=== PATIENT | male | born 1955 | race African-American/Black ===

== ENCOUNTER 2018-09-09 18:31 | Inpatient (IN) ==
[2018-09-09] MEDS ORDERED: ONDANSETRON 4 MG/2 ML VIAL IV PRN (21:31)
[2018-09-09] MEDS ORDERED: MORPHINE 4 MG/1 ML VIAL IV PRN (21:31)
[2018-09-09] MEDS ORDERED: ACETAMINOPHEN 325 MG TABLET PO PRN (21:31)
[2018-09-09] MEDS ORDERED: DOCUSATE SODIUM 100 MG CAPSULE PO PRN (21:31)
[2018-09-09] MEDS ORDERED: ZALEPLON 5 MG CAPSULE PO PRN (21:31)
[2018-09-09] MEDS ORDERED: NICOTINE 21 MG/24 HR PATCH TRANSDERM PRN (21:31)
[2018-09-09] MEDS ORDERED: TICAGRELOR 90 MG TABLET PO ONE (21:33)
[2018-09-09 21:37] LABS: Basophils % 0.3 % (0.0-0.8); Eosinophils % 0.5 % (0.00-10.9); Hematocrit 43.2 VOL% (42.0-52.0); Hemoglobin 13.6 GM/DL (14.0-18.0); Immature Granulocytes % 0.3 %; Immature Granulocytes Absolute 0.02 #; Lymphocytes # 2.6 10*3/uL (1.4-4.0); Lymphocytes % 44.3 % (21.2-54.2); Mean Corpuscular HGB Conc 31.5 GM/DL (32-36); Mean Corpuscular Volume 85.5 FL (87-102); Mean Platelet Volume 9.1 FL (9.6-12.0); Monocytes % 8.7 % (1.7-12.7); Neutrophils % 45.9 % (38.7-73.9); Platelet Count 203 T/CUMM (130-400); Red Blood Count 5.05 MC/CUMM (3.8-5.5); Red Cell Distribution Width 14.1 % (9.3-17.3); White Blood Count 5.9 T/CUMM (4-12)
[2018-09-09 21:48] LABS: PT Patient Result 10.7 SECS; Partial Thromboplastin Time 33.4 SECS (0-40)
[2018-09-09 21:50] LABS: Calcium 9.4 MG/DL (8.5-10.1); Osmolality,Calculated 278.3 MOS/KG (273-304)
[2018-09-09] MEDS ORDERED: ENOXAPARIN 40 MG/0.4 ML SYRINGE SUBCUT SCH (22:00)
[2018-09-09] MEDS ORDERED: MAGNESIUM SULF RIDER 2 GM in PREMIX 1 EACH IV PRN (22:13)
[2018-09-09] MEDS ORDERED: POTASSIUM CHLORIDE RIDER 10 MEQ in PREMIX 1 EACH IV PRN (22:13)
[2018-09-09 22:14] LABS: Thyroid Stimulating Hormone 2.25 uIU/ml (0.358-3.74)
[2018-09-09] MEDS ORDERED: HEPARIN/NACL 0.9% 2 UNITS/ML 1,000 ML IV ONE (22:29)
[2018-09-09] MEDS ORDERED: LIDOCAINE 1% 20 ML VIAL ONE (22:29)
[2018-09-09] MEDS ORDERED: HYDROmorphone 2 MG/1 ML VIAL ONE (22:30)
[2018-09-09] MEDS ORDERED: MIDAZOLAM 2 MG/2 ML VIAL ONE (22:30)
[2018-09-09] MEDS: SODIUM CHLORIDE 0.9% 1,000 ML IV SCH (22:30)
[2018-09-09] MEDS ORDERED: diphenhydrAMINE 50 MG/1 ML VIAL ONE (22:50)
[2018-09-09] MEDS ORDERED: BIVALIRUDIN 250 MG VIAL IV ONE (23:25)
[2018-09-09] MEDS ORDERED: NITROGLYCERIN SL 0.4 MG TABLET SL PRN (23:29)
[2018-09-10] MEDS: SODIUM CHLORIDE 0.9% 1,000 ML IV SCH (06:18)
[2018-09-10] MEDS ORDERED: ENOXAPARIN 80 MG/0.8 ML SYRINGE SUBCUT SCH (07:00)
[2018-09-10 07:17] LABS: Basophils % 0.2 % (0.0-0.8); Eosinophils % 0.5 % (0.00-10.9); Hematocrit 43.8 VOL% (42.0-52.0); Hemoglobin 14.2 GM/DL (14.0-18.0); Immature Granulocytes % 0.2 %; Immature Granulocytes Absolute 0.01 #; Lymphocytes % 35.9 % (21.2-54.2); Mean Corpuscular HGB Conc 32.4 GM/DL (32-36); Mean Corpuscular Volume 85.9 FL (87-102); Mean Platelet Volume 9.3 FL (9.6-12.0); Monocytes % 9.7 % (1.7-12.7); Neutrophils % 53.5 % (38.7-73.9); Platelet Count 201 T/CUMM (130-400); Red Cell Distribution Width 14.3 % (9.3-17.3); White Blood Count 5.5 T/CUMM (4-12)
[2018-09-10 08:09] LABS: Calcium 8.5 MG/DL (8.5-10.1); Risk Ratio 4.36; VLDL CHOLESTEROL 27.6 MG/DL
[2018-09-10] MEDS: ASPIRIN 325 MG TABLET PO SCH (10:03)
[2018-09-10] MEDS: METOPROLOL TARTRATE 50 MG TABLET PO SCH ×2 (10:03→20:51)
[2018-09-10] MEDS: PANTOPRAZOLE 40 MG TABLET PO SCH (10:04)
[2018-09-10] MEDS: ATORVASTATIN 40 MG TABLET PO SCH (10:05)
[2018-09-10] MEDS: QUEtiapine 100 MG TABLET PO SCH (20:51)
[2018-09-11] MEDS: METOPROLOL TARTRATE 50 MG TABLET PO SCH ×2 (08:02→21:18)
[2018-09-11] MEDS: ASPIRIN 325 MG TABLET PO SCH (08:16)
[2018-09-11] MEDS: ATORVASTATIN 40 MG TABLET PO SCH (08:16)
[2018-09-11] MEDS: PANTOPRAZOLE 40 MG TABLET PO SCH (08:16)
[2018-09-11] MEDS ORDERED: diphenhydrAMINE CAP 25 MG CAPSULE PO PRN (16:55)
[2018-09-11] MEDS ORDERED: MAGNESIUM HYDROXIDE SUSP 30 ML UDCUP PO PRN (16:56)
[2018-09-11] MEDS: QUEtiapine 100 MG TABLET PO SCH (21:18)
[2018-09-12 04:51] LABS: Basophils % 0.4 % (0.0-0.8); Eosinophils % 0.6 % (0.00-10.9); Hematocrit 38.4 VOL% (42.0-52.0); Hemoglobin 12.6 GM/DL (14.0-18.0); Immature Granulocytes % 0.2 %; Immature Granulocytes Absolute 0.01 #; Lymphocytes # 1.8 10*3/uL (1.4-4.0); Lymphocytes % 39.7 % (21.2-54.2); Mean Corpuscular HGB Conc 32.8 GM/DL (32-36); Mean Platelet Volume 9.2 FL (9.6-12.0); Monocytes % 11.6 % (1.7-12.7); Neutrophils % 47.5 % (38.7-73.9); Platelet Count 191 T/CUMM (130-400); Red Blood Count 4.57 MC/CUMM (3.8-5.5); Red Cell Distribution Width 13.9 % (9.3-17.3); White Blood Count 4.6 T/CUMM (4-12)
[2018-09-12 05:07] LABS: Calcium 9.2 MG/DL (8.5-10.1)
[2018-09-12] MEDS: PANTOPRAZOLE 40 MG TABLET PO SCH (09:20)
[2018-09-12] MEDS: ASPIRIN 325 MG TABLET PO SCH (09:20)
[2018-09-12] MEDS: ATORVASTATIN 40 MG TABLET PO SCH (09:20)
[2018-09-12] MEDS: METOPROLOL TARTRATE 50 MG TABLET PO SCH ×2 (09:20→20:23)
[2018-09-12] MEDS: QUEtiapine 100 MG TABLET PO SCH (21:08)
[2018-09-13 05:12] LABS: Basophils % 0.4 % (0.0-0.8); Eosinophils % 0.9 % (0.00-10.9); Hematocrit 40.4 VOL% (42.0-52.0); Immature Granulocytes % 0.2 %; Immature Granulocytes Absolute 0.01 #; Lymphocytes # 2.1 10*3/uL (1.4-4.0); Lymphocytes % 44.5 % (21.2-54.2); Mean Corpuscular HGB Conc 32.2 GM/DL (32-36); Mean Corpuscular Volume 84.3 FL (87-102); Mean Platelet Volume 9.3 FL (9.6-12.0); Monocytes % 10.9 % (1.7-12.7); Neutrophils % 43.1 % (38.7-73.9); Platelet Count 205 T/CUMM (130-400); Red Blood Count 4.79 MC/CUMM (3.8-5.5); Red Cell Distribution Width 13.8 % (9.3-17.3); White Blood Count 4.7 T/CUMM (4-12)
[2018-09-13 05:41] LABS: Calcium 9.5 MG/DL (8.5-10.1)
[2018-09-13] MEDS: ASPIRIN 325 MG TABLET PO SCH (09:20)
[2018-09-13] MEDS: PANTOPRAZOLE 40 MG TABLET PO SCH (09:21)
[2018-09-13] MEDS: METOPROLOL TARTRATE 50 MG TABLET PO SCH ×2 (09:21→22:14)
[2018-09-13] MEDS: ATORVASTATIN 40 MG TABLET PO SCH (09:21)
[2018-09-13] MEDS: CHLORHEXIDINE 4% SOLN 118 ML BOTTLE TOP SCH ×2 (16:06→22:14)
[2018-09-13] MEDS: CHLORHEXIDINE 0.12% ORAL RINSE 60 ML BOTTLE SWISH/SPIT SCH (22:14)
[2018-09-13] MEDS: QUEtiapine 100 MG TABLET PO SCH (22:14)
[2018-09-14] MEDS ORDERED: PAPAVERINE 60 MG/2 ML VIAL ONE (04:24)
[2018-09-14] MEDS ORDERED: TISSUE ADHESIVE 1 EACH APPLICATOR TOP ONE (04:24)
[2018-09-14] MEDS ORDERED: VANCOMYCIN 1,000 MG VIAL ONE (04:24)
[2018-09-14] MEDS: CHLORHEXIDINE 0.12% ORAL RINSE 60 ML BOTTLE SWISH/SPIT SCH ×3 (04:51→20:16)
[2018-09-14] MEDS: CHLORHEXIDINE 4% SOLN 118 ML BOTTLE TOP SCH ×2 (04:51→10:37)
[2018-09-14] MEDS ORDERED: MIDAZOLAM 10 MG/2 ML VIAL ONE (05:52)
[2018-09-14] MEDS ORDERED: SUFentanil 250 MCG/5 ML AMP ONE (05:52)
[2018-09-14] MEDS ORDERED: CEFUROXIME INJ 1,500 MG in SYRINGE 1 EACH IV ONE (06:00)
[2018-09-14] MEDS: SODIUM CHLORIDE 0.9% 1,000 ML IV SCH ×2 (06:03→10:38)
[2018-09-14] MEDS ORDERED: FAMOTIDINE 20 MG TABLET PO ONE (06:30)
[2018-09-14] MEDS ORDERED: DIAZEPAM 5 MG TABLET PO ONE (06:30)
[2018-09-14 07:53] LABS: ABG Base Excess 2.1 MMOL/L (-2.5-2.5); ABG HCO3 26.3 MMOL/L (20-26); ABG PCO2 37.3 MM HG (35-48); ABG TCO2 22.6 MMOL/L (23-27); Glucose Heart Surgery 108 MG/DL (74-106); Hematocrit Heart Surgery 39.5 PERCENT (42-52); Hemoglobin Heart Surgery 12.9 G/DL (14.0-18.0); Ionized Calcium Arterial 1.17 MMOL/L (1.21-1.46); PCO2 Patient Temp Arterial 37.3 MMHG; Patient Temperature 37 CELCIUS; Potassium Heart/CVR 3.5 MMOL/L (3.5-5.1); Sodium Heart/CVR 140 MMOL/L (135-145)
[2018-09-14] MEDS ORDERED: CEFUROXIME 1,500 MG VIAL ONE (07:58)
[2018-09-14 08:37] LABS: Apearance,Urine CLEAR (Clear); Bilirubin,Urine Negative (Negative); Blood, Urine Negative (Negative); Glucose,Urine (UA) Negative (Negative); Ketones,Urine Negative (Negative); Mucus,Urine Occasional /LPF (Occasional); Nitrite,Urine Negative (Negative); Protein,Urine Negative; RBC,Urine 2 /HPF (0-4); Sperm,Urine Occasional /HPF (Negative); Squamous Epithelial Cell,Urine Occasional /HPF (0-10); Urine Color Yellow (Yellow); Urine Specific Gravity 1.014 (1.001-1.035); Urine Urobilinogen < 2.0 EU/DL (0.2-1.0); WBC,Urine <1 /HPF (0-6)
[2018-09-14 09:39] LABS: Hematocrit Heart Surgery 28.2 PERCENT (42-52); Hemoglobin Heart Surgery 9.1 G/DL (14.0-18.0); PCO2 Patient Temp Venous 32.1 MM HG; PH Patient Temp Venous 7.507; PO2 Patient Temp Venous 35.1 MM HG; Potassium Heart/CVR 4.4 MMOL/L (3.5-5.1); VBG Base Excess 2.8 MEQ/L (0-4); VBG HCO3 26.6 MEQ/L (24-28); VBG Oxygen Saturation 80.3 %; VBG PCO2 37.1 MMHG (41-51); VBG PH 7.462; VBG PO2 43.3 MMHG (17-40)
[2018-09-14 10:06] LABS: PCO2 Patient Temp Venous 26.9 MM HG; PH Patient Temp Venous 7.573; PO2 Patient Temp Venous 38.3 MM HG; Potassium Heart/CVR 3.7 MMOL/L (3.5-5.1); VBG Base Excess 2.4 MEQ/L (0-4); VBG HCO3 24.8 MEQ/L (24-28); VBG PCO2 30.7 MMHG (41-51); VBG PH 7.526; VBG PO2 47.3 MMHG (17-40)
[2018-09-14] MEDS: ASPIRIN 325 MG TABLET PO SCH (10:37)
[2018-09-14] MEDS: METOPROLOL TARTRATE 50 MG TABLET PO SCH (10:37)
[2018-09-14] MEDS: ATORVASTATIN 40 MG TABLET PO SCH (10:37)
[2018-09-14] MEDS: PANTOPRAZOLE 40 MG TABLET PO SCH (10:38)
[2018-09-14] MEDS ORDERED: POTASSIUM CHLORIDE RIDER 100 ML IV ONE (10:40)
[2018-09-14] MEDS ORDERED: ALBUMIN 5% 12.5 GM/250 ML VIAL IV ONE (10:40)
[2018-09-14] MEDS ORDERED: PHENYLEPHRINE DRIP 40 MG/250 ML PREMIX IV ONE (10:40)
[2018-09-14] MEDS ORDERED: NITROPRUSSIDE 50 MG/2 ML VIAL ONE (10:41)
[2018-09-14] MEDS ORDERED: THROMBIN TOPICAL (RECOMBINANT) 5,000 UNIT VIAL TOP ONE (10:44)
[2018-09-14] MEDS ORDERED: SODIUM BICARBONATE 50 MEQ/50 ML VIAL IV ONE ×2 (10:44→21:00)
[2018-09-14] MEDS ORDERED: MANNITOL 100 GM/500 ML BAG IV ONE (10:44)
[2018-09-14] MEDS ORDERED: DEXTROSE 5% KCL 20 MEQ 20 MEQ/1,000 ML BAG IV ONE (10:44)
[2018-09-14] MEDS ORDERED: ALBUMIN 25% 25 GM/100 ML VIAL IV ONE (10:44)
[2018-09-14] MEDS ORDERED: MAGNESIUM SULFATE 5 GM/10 ML VIAL IV ONE (10:44)
[2018-09-14] MEDS ORDERED: PROTAMINE SULFATE 250 MG/25 ML VIAL IV ONE (10:44)
[2018-09-14] MEDS ORDERED: HEPARIN 10,000 UNIT/10 ML VIAL ONE (10:45)
[2018-09-14] MEDS ORDERED: methylPREDNISolone SOD SUC 1,000 MG/8 ML VIAL ONE (10:45)
[2018-09-14] MEDS ORDERED: FUROSEMIDE 20 MG/2 ML VIAL ONE (10:45)
[2018-09-14] MEDS ORDERED: HYDROmorphone 2 MG/1 ML VIAL IV PRN (10:46)
[2018-09-14 10:53] LABS: ABG Base Excess 2.4 MMOL/L (-2.5-2.5); ABG HCO3 26.6 MMOL/L (20-26); ABG Oxygen Saturation 99.9 % (95-100); ABG PCO2 36.9 MM HG (35-48); ABG PH 7.458 (7.35-7.45); ABG TCO2 23.4 MMOL/L (23-27); Glucose Heart Surgery 208 MG/DL (74-106); Hematocrit Heart Surgery 33.5 PERCENT (42-52); Hemoglobin Heart Surgery 10.9 G/DL (14.0-18.0); Ionized Calcium Arterial 1.28 MMOL/L (1.21-1.46); PCO2 Patient Temp Arterial 36.9 MMHG; PH Patient Temp Arterial 7.458; Patient Temperature 37 CELCIUS; Potassium Heart/CVR 3.3 MMOL/L (3.5-5.1); Sodium Heart/CVR 137 MMOL/L (135-145)
[2018-09-14] MEDS ORDERED: ETOMIDATE 40 MG/20 ML VIAL IV ONE (11:47)
[2018-09-14] MEDS ORDERED: SEVOFLURANE 1 UNIT/15 MINUTE INH ONE (11:47)
[2018-09-14] MEDS ORDERED: VECURONIUM 10 MG VIAL IV ONE (11:47)
[2018-09-14] MEDS ORDERED: ePHEDrine 50 MG/ML AMP ONE (11:47)
[2018-09-14] MEDS ORDERED: LACTATED RINGERS 1,000 ML IV ONE (11:47)
[2018-09-14] MEDS ORDERED: CALCIUM CHLORIDE 1,000 MG/10 ML VIAL IV ONE (11:48)
[2018-09-14] MEDS ORDERED: PHENYLEPHRINE DRIP 20 MG/250 ML PREMIX IV ONE (11:48)
[2018-09-14] MEDS ORDERED: SODIUM CHLORIDE 0.9% 1,000 ML IV ONE (11:49)
[2018-09-14] MEDS ORDERED: AMINOCAPROIC ACID 5,000 MG/20 ML VIAL ONE (11:49)
[2018-09-14] MEDS ORDERED: PHENYLEPHRINE 1 MG/10 ML SYRINGE IV ONE (11:49)
[2018-09-14] MEDS ORDERED: NITROGLYCERIN DRIP 50 MG/250 ML BOTTLE IV ONE (11:49)
[2018-09-14] MEDS ORDERED: CHLORHEXIDINE 4% SOLN 118 ML BOTTLE TOP PRN (11:54)
[2018-09-14] MEDS ORDERED: MAGNESIUM SULF RIDER 4 GM in PREMIX 1 EACH IV PRN (11:54)
[2018-09-14] MEDS ORDERED: POTASSIUM CHLORIDE RIDER 10 MEQ in PREMIX 1 EACH IV PRN (11:54)
[2018-09-14] MEDS ORDERED: MIDAZOLAM 2 MG/2 ML VIAL IV PRN (11:54)
[2018-09-14] MEDS ORDERED: ALBUMIN 5% 12.5 GM in PREMIX 1 EACH IV PRN (11:54)
[2018-09-14] MEDS ORDERED: DEXTROSE 50% 25 GM/50 ML VIAL IV PRN ×2 (11:54)
[2018-09-14] MEDS ORDERED: ONDANSETRON 4 MG/2 ML VIAL IV PRN (11:54)
[2018-09-14] MEDS ORDERED: MAGNESIUM SULF RIDER 2 GM in PREMIX 1 EACH IV PRN (11:54)
[2018-09-14] MEDS ORDERED: INSULIN REGULAR 100 UNIT/ML IV PRN (11:54)
[2018-09-14] MEDS ORDERED: CALCIUM CHLORIDE 1,000 MG/10 ML SYRINGE IV PRN (11:54)
[2018-09-14] MEDS ORDERED: ACETAMINOPHEN 650 MG SUPP RECTAL PRN (11:54)
[2018-09-14] MEDS ORDERED: HEPARIN/NACL 0.9% 2 UNITS/ML 500 ML IV ONE (11:54)
[2018-09-14] MEDS ORDERED: SODIUM CHLORIDE 0.45% 1,000 ML IV SCH ×2 (12:00)
[2018-09-14] MEDS ORDERED: INSULIN REGULAR DRIP 100 ML IV SCH (12:00)
[2018-09-14 12:07] LABS: ABG Base Excess 2.3 MMOL/L (-2.5-2.5); ABG HCO3 25.4 MMOL/L (20-26); ABG Oxygen Saturation 97.9 % (95-100); ABG PCO2 34.6 MM HG (35-48); ABG PH 7.484 (7.35-7.45); ABG PO2 112.4 MM HG (80-95); ABG TCO2 26.5 MMOL/L (23-27); Glucose Heart Surgery 169 MG/DL (74-106); Hemoglobin Heart Surgery 12.4 G/DL (14.0-18.0); Potassium Heart/CVR 3.4 MMOL/L (3.5-5.1)
[2018-09-14 12:08] LABS: Basophils % 0.4 % (0.0-0.8); Eosinophils % 0.4 % (0.00-10.9); Hematocrit 36.5 VOL% (42.0-52.0); Hemoglobin 11.7 GM/DL (14.0-18.0); Immature Granulocytes % 0.4 %; Immature Granulocytes Absolute 0.02 #; Lymphocytes # 0.8 10*3/uL (1.4-4.0); Lymphocytes % 15.5 % (21.2-54.2); Mean Corpuscular HGB Conc 32.1 GM/DL (32-36); Mean Corpuscular Volume 84.3 FL (87-102); Mean Platelet Volume 9.4 FL (9.6-12.0); Monocytes % 3.7 % (1.7-12.7); Neutrophils % 79.6 % (38.7-73.9); Platelet Count 170 T/CUMM (130-400); Red Blood Count 4.33 MC/CUMM (3.8-5.5); Red Cell Distribution Width 13.8 % (9.3-17.3); White Blood Count 5.4 T/CUMM (4-12)
[2018-09-14] MEDS: SODIUM CHLORIDE 0.9% 250 ML IV PRN ×2 (12:15→12:35)
[2018-09-14 12:21] LABS: INR 1.1; PT Patient Result 11.4 SECS; Partial Thromboplastin Time 26.5 SECS (0-40)
[2018-09-14 12:23] LABS: Blood Urea Nitrogen 13 MG/DL (7-18); Calcium 9.1 MG/DL (8.5-10.1); Glucose 164 MG/DL (74-106)
[2018-09-14] MEDS: POTASSIUM CHLORIDE RIDER 20 MEQ in PREMIX 1 EACH IV PRN ×3 (12:33→17:38)
[2018-09-14] MEDS ORDERED: ASPIRIN 325 MG TABLET PER TUBE ONE (14:08)
[2018-09-14] MEDS: MORPHINE 4 MG/1 ML VIAL IV PRN ×3 (14:45→19:31)
[2018-09-14 15:14] LABS: ABG Base Excess -4.4 MMOL/L (-2.5-2.5); ABG HCO3 20.8 MMOL/L (20-26); ABG PCO2 44.8 MM HG (35-48); ABG PH 7.301 (7.35-7.45); ABG TCO2 19.7 MMOL/L (23-27); Glucose Heart Surgery 258 MG/DL (74-106); Hematocrit Heart Surgery 37.9 PERCENT (42-52); Hemoglobin Heart Surgery 12.3 G/DL (14.0-18.0); Potassium Heart/CVR 3.3 MMOL/L (3.5-5.1)
[2018-09-14] MEDS: INSULIN REGULAR 100 UNIT/ML SUBCUT SCH ×3 (16:18→23:41)
[2018-09-14] MEDS: CEFUROXIME INJ 1,500 MG in SYRINGE 1 EACH IV SCH (19:28)
[2018-09-14 20:33] LABS: ABG Base Excess -9.1 MMOL/L (-2.5-2.5); ABG HCO3 17.3 MMOL/L (20-26); ABG Oxygen Saturation 98.3 % (95-100); ABG PCO2 42.8 MM HG (35-48); ABG PH 7.238 (7.35-7.45); ABG TCO2 16.4 MMOL/L (23-27); Glucose Heart Surgery 281 MG/DL (74-106); Hematocrit Heart Surgery 39.5 PERCENT (42-52); Hemoglobin Heart Surgery 12.9 G/DL (14.0-18.0); Potassium Heart/CVR 5.1 MMOL/L (3.5-5.1)
[2018-09-14] MEDS: MORPHINE 10 MG/1 ML VIAL IV PRN (21:19)
[2018-09-14] MEDS: SODIUM BICARB INJ 50 MEQ in SODIUM CHLORIDE 0.9% 1,000 ML IV SCH (21:43)
[2018-09-14] MEDS ORDERED: KETOROLAC 15 MG/1 ML VIAL IV ONE (21:59)
[2018-09-14 23:12] LABS: ABG HCO3 23.5 MMOL/L (20-26); ABG Oxygen Saturation 96.7 % (95-100); ABG PCO2 44.8 MM HG (35-48); ABG PH 7.351 (7.35-7.45); ABG PO2 95.6 MM HG (80-95); ABG TCO2 22.1 MMOL/L (23-27); Glucose Heart Surgery 208 MG/DL (74-106); Hematocrit Heart Surgery 37.4 PERCENT (42-52); Hemoglobin Heart Surgery 12.2 G/DL (14.0-18.0)
[2018-09-15] MEDS: MORPHINE 10 MG/1 ML VIAL IV PRN ×5 (01:38→16:15)
[2018-09-15 03:56] LABS: Basophils % 0.1 % (0.0-0.8); Hematocrit 34.3 VOL% (42.0-52.0); Hemoglobin 11.1 GM/DL (14.0-18.0); Immature Granulocytes % 0.4 %; Immature Granulocytes Absolute 0.05 #; Lymphocytes # 0.6 10*3/uL (1.4-4.0); Lymphocytes % 4.4 % (21.2-54.2); Mean Corpuscular HGB Conc 32.4 GM/DL (32-36); Mean Corpuscular Volume 85.3 FL (87-102); Mean Platelet Volume 9.6 FL (9.6-12.0); Monocytes % 8.6 % (1.7-12.7); Neutrophils % 86.5 % (38.7-73.9); Platelet Count 193 T/CUMM (130-400); Red Blood Count 4.02 MC/CUMM (3.8-5.5); Red Cell Distribution Width 14.1 % (9.3-17.3); White Blood Count 12.5 T/CUMM (4-12)
[2018-09-15 04:11] LABS: Calcium 8.4 MG/DL (8.5-10.1); Osmolality,Calculated 290.6 MOS/KG (273-304)
[2018-09-15] MEDS: INSULIN REGULAR 100 UNIT/ML SUBCUT SCH ×5 (04:12→23:44)
[2018-09-15 04:14] LABS: Anisocytosis 1+; Band Neutrophils 3 % (0-10); Lymphocytes 7 % (20-55); Platelet Estimate Adequate; Segmented Neutrophils 87 % (50-85); Total Cells Counted 100
[2018-09-15] MEDS: SODIUM BICARB INJ 50 MEQ in SODIUM CHLORIDE 0.9% 1,000 ML IV SCH (06:16)
[2018-09-15 06:42] LABS: ABG Base Excess 3.1 MMOL/L (-2.5-2.5); ABG HCO3 27.1 MMOL/L (20-26); ABG Oxygen Saturation 97.4 % (95-100); ABG PCO2 42.3 MM HG (35-48); ABG PH 7.426 (7.35-7.45); ABG PO2 92.1 MM HG (80-95); ABG TCO2 24.9 MMOL/L (23-27); Glucose Heart Surgery 118 MG/DL (74-106); Hematocrit Heart Surgery 34.3 PERCENT (42-52); Hemoglobin Heart Surgery 11.1 G/DL (14.0-18.0); Potassium Heart/CVR 4.4 MMOL/L (3.5-5.1)
[2018-09-15] MEDS ORDERED: FUROSEMIDE 40 MG/4 ML VIAL IV ONE (07:34)
[2018-09-15] MEDS: CEFUROXIME INJ 1,500 MG in SYRINGE 1 EACH IV SCH ×2 (08:03→20:32)
[2018-09-15] MEDS: METOPROLOL TARTRATE 25 MG TABLET PO SCH ×2 (08:28→22:21)
[2018-09-15] MEDS: FUROSEMIDE 40 MG TABLET PO SCH (08:29)
[2018-09-15] MEDS: CLOPIDOGREL 75 MG TABLET PO SCH (08:29)
[2018-09-15] MEDS: ASPIRIN EC 325 MG TABLET PO SCH (08:29)
[2018-09-15] MEDS: FAMOTIDINE 20 MG/2 ML VIAL IV SCH ×2 (08:29→22:24)
[2018-09-15] MEDS: CHLORHEXIDINE 0.12% ORAL RINSE 60 ML BOTTLE SWISH/SPIT SCH ×2 (08:50→22:31)
[2018-09-15] MEDS: MORPHINE 4 MG/1 ML VIAL IV PRN (20:26)
[2018-09-15] MEDS: ATORVASTATIN 40 MG TABLET PO SCH (22:21)
[2018-09-16] MEDS: INSULIN REGULAR 100 UNIT/ML SUBCUT SCH ×6 (01:04→22:27)
[2018-09-16] MEDS: MORPHINE 4 MG/1 ML VIAL IV PRN (04:30)
[2018-09-16 05:16] LABS: Basophils % 0.1 % (0.0-0.8); Hematocrit 33.1 VOL% (42.0-52.0); Hemoglobin 10.5 GM/DL (14.0-18.0); Immature Granulocytes % 0.4 %; Immature Granulocytes Absolute 0.05 #; Lymphocytes # 1.7 10*3/uL (1.4-4.0); Lymphocytes % 12.6 % (21.2-54.2); Mean Corpuscular HGB Conc 31.7 GM/DL (32-36); Mean Corpuscular Volume 85.8 FL (87-102); Mean Platelet Volume 10.1 FL (9.6-12.0); Neutrophils % 75.9 % (38.7-73.9); Platelet Count 174 T/CUMM (130-400); Red Blood Count 3.86 MC/CUMM (3.8-5.5); Red Cell Distribution Width 14.6 % (9.3-17.3); White Blood Count 13.1 T/CUMM (4-12)
[2018-09-16 05:31] LABS: Calcium 8.8 MG/DL (8.5-10.1); Osmolality,Calculated 281.4 MOS/KG (273-304)
[2018-09-16] MEDS: FUROSEMIDE 40 MG TABLET PO SCH (09:05)
[2018-09-16] MEDS: CHLORHEXIDINE 0.12% ORAL RINSE 60 ML BOTTLE SWISH/SPIT SCH ×2 (09:06→22:36)
[2018-09-16] MEDS: CLOPIDOGREL 75 MG TABLET PO SCH (09:06)
[2018-09-16] MEDS: METOPROLOL TARTRATE 25 MG TABLET PO SCH ×2 (09:06→22:33)
[2018-09-16] MEDS: ASPIRIN EC 325 MG TABLET PO SCH (09:06)
[2018-09-16] MEDS: FAMOTIDINE 20 MG/2 ML VIAL IV SCH ×2 (09:53→22:39)
[2018-09-16] MEDS: MORPHINE 10 MG/1 ML VIAL IV PRN ×2 (10:02→16:25)
[2018-09-16] MEDS ORDERED: BISACODYL 5 MG TABLET PO ONE (11:00)
[2018-09-16] MEDS: DOCUSATE SODIUM 100 MG CAPSULE PO SCH ×2 (11:25→22:34)
[2018-09-16] MEDS: ATORVASTATIN 40 MG TABLET PO SCH (22:34)
[2018-09-17] MEDS: INSULIN REGULAR 100 UNIT/ML SUBCUT SCH ×6 (01:32→21:54)
[2018-09-17] MEDS: MORPHINE 4 MG/1 ML VIAL IV PRN (04:42)
[2018-09-17 05:09] LABS: Basophils % 0.2 % (0.0-0.8); Hematocrit 33.1 VOL% (42.0-52.0); Hemoglobin 10.6 GM/DL (14.0-18.0); Immature Granulocytes % 0.6 %; Immature Granulocytes Absolute 0.07 #; Lymphocytes # 2.2 10*3/uL (1.4-4.0); Lymphocytes % 17.6 % (21.2-54.2); Mean Corpuscular Volume 85.8 FL (87-102); Mean Platelet Volume 9.6 FL (9.6-12.0); Monocytes % 12.1 % (1.7-12.7); Neutrophils % 69.5 % (38.7-73.9); Platelet Count 195 T/CUMM (130-400); Red Blood Count 3.86 MC/CUMM (3.8-5.5); Red Cell Distribution Width 13.9 % (9.3-17.3); White Blood Count 12.3 T/CUMM (4-12)
[2018-09-17 05:30] LABS: Calcium 9.1 MG/DL (8.5-10.1); Osmolality,Calculated 281.4 MOS/KG (273-304)
[2018-09-17] MEDS: FUROSEMIDE 40 MG TABLET PO SCH (09:15)
[2018-09-17] MEDS: DOCUSATE SODIUM 100 MG CAPSULE PO SCH ×2 (09:15→21:25)
[2018-09-17] MEDS: METOPROLOL TARTRATE 25 MG TABLET PO SCH ×2 (09:15→22:42)
[2018-09-17] MEDS: CLOPIDOGREL 75 MG TABLET PO SCH (09:16)
[2018-09-17] MEDS: ASPIRIN EC 325 MG TABLET PO SCH (09:16)
[2018-09-17] MEDS: FAMOTIDINE 20 MG/2 ML VIAL IV SCH (09:38)
[2018-09-17] MEDS: CHLORHEXIDINE 0.12% ORAL RINSE 60 ML BOTTLE SWISH/SPIT SCH ×2 (10:03→22:42)
[2018-09-17] MEDS: PANTOPRAZOLE 40 MG TABLET PO SCH (10:03)
[2018-09-17] MEDS: ATORVASTATIN 40 MG TABLET PO SCH (21:25)
[2018-09-18] MEDS: INSULIN REGULAR 100 UNIT/ML SUBCUT SCH ×6 (00:52→22:49)
[2018-09-18] MEDS: ASPIRIN EC 325 MG TABLET PO SCH (09:35)
[2018-09-18] MEDS: PANTOPRAZOLE 40 MG TABLET PO SCH (09:35)
[2018-09-18] MEDS: METOPROLOL TARTRATE 25 MG TABLET PO SCH ×2 (09:35→21:21)
[2018-09-18] MEDS: CHLORHEXIDINE 0.12% ORAL RINSE 60 ML BOTTLE SWISH/SPIT SCH ×2 (09:35→21:20)
[2018-09-18] MEDS: FUROSEMIDE 40 MG TABLET PO SCH (09:35)
[2018-09-18] MEDS: DOCUSATE SODIUM 100 MG CAPSULE PO SCH ×2 (09:35→22:50)
[2018-09-18] MEDS: CLOPIDOGREL 75 MG TABLET PO SCH (09:35)
[2018-09-18] MEDS: MORPHINE 4 MG/1 ML VIAL IV PRN (09:55)
[2018-09-18] MEDS: ATORVASTATIN 40 MG TABLET PO SCH (21:21)
[2018-09-19] MEDS: MORPHINE 4 MG/1 ML VIAL IV PRN ×2 (05:00→20:28)
[2018-09-19] MEDS: INSULIN REGULAR 100 UNIT/ML SUBCUT SCH ×6 (05:38→20:33)
[2018-09-19] MEDS ORDERED: LACTATED RINGERS 500 ML IV ONE (09:13)
[2018-09-19] MEDS: ASPIRIN EC 325 MG TABLET PO SCH (09:16)
[2018-09-19] MEDS: CLOPIDOGREL 75 MG TABLET PO SCH (09:16)
[2018-09-19] MEDS: METOPROLOL TARTRATE 25 MG TABLET PO SCH ×2 (09:16→20:28)
[2018-09-19] MEDS: DOCUSATE SODIUM 100 MG CAPSULE PO SCH (09:16)
[2018-09-19] MEDS: PANTOPRAZOLE 40 MG TABLET PO SCH (09:16)
[2018-09-19] MEDS: FUROSEMIDE 40 MG TABLET PO SCH (09:16)
[2018-09-19] MEDS: CHLORHEXIDINE 0.12% ORAL RINSE 60 ML BOTTLE SWISH/SPIT SCH ×2 (09:17→20:28)
[2018-09-19] MEDS: ATORVASTATIN 40 MG TABLET PO SCH (20:28)
[2018-09-20] MEDS: INSULIN REGULAR 100 UNIT/ML SUBCUT SCH ×4 (00:31→12:08)
[2018-09-20] MEDS: DOCUSATE SODIUM 100 MG CAPSULE PO SCH ×2 (03:32→08:46)
[2018-09-20] MEDS: MORPHINE 4 MG/1 ML VIAL IV PRN ×3 (04:00→12:00)
[2018-09-20 04:10] LABS: Basophils % 0.1 % (0.0-0.8); Eosinophils # 0.1 10*3/uL (0.0-0.87); Eosinophils % 0.8 % (0.00-10.9); Hematocrit 32.4 VOL% (42.0-52.0); Hemoglobin 10.4 GM/DL (14.0-18.0); Immature Granulocytes % 0.6 %; Immature Granulocytes Absolute 0.04 #; Lymphocytes % 28.3 % (21.2-54.2); Mean Corpuscular HGB Conc 32.1 GM/DL (32-36); Mean Corpuscular Volume 84.6 FL (87-102); Mean Platelet Volume 9.1 FL (9.6-12.0); Monocytes % 14.6 % (1.7-12.7); Neutrophils % 55.6 % (38.7-73.9); Platelet Count 276 T/CUMM (130-400); Red Blood Count 3.83 MC/CUMM (3.8-5.5); Red Cell Distribution Width 13.3 % (9.3-17.3); White Blood Count 7.1 T/CUMM (4-12)
[2018-09-20 04:33] LABS: Calcium 8.8 MG/DL (8.5-10.1); Osmolality,Calculated 282.4 MOS/KG (273-304)
[2018-09-20] MEDS: CLOPIDOGREL 75 MG TABLET PO SCH (08:46)
[2018-09-20] MEDS: FUROSEMIDE 40 MG TABLET PO SCH (08:46)
[2018-09-20] MEDS: ASPIRIN EC 325 MG TABLET PO SCH (08:46)
[2018-09-20] MEDS: METOPROLOL TARTRATE 25 MG TABLET PO SCH (08:46)
[2018-09-20] MEDS: PANTOPRAZOLE 40 MG TABLET PO SCH (08:47)
[2018-09-20] MEDS: CHLORHEXIDINE 0.12% ORAL RINSE 60 ML BOTTLE SWISH/SPIT SCH (08:47)
[2018-09-20] MEDS ORDERED: POTASSIUM CHLORIDE 20 MEQ TABLET PO ONE (09:19)
[2018-09-20] MEDS ORDERED: FUROSEMIDE 20 MG TABLET PO SCH (09:49)
[2018-09-20 11:50] VITALS: BP 100/60
== END 2018-09-20 12:54 | disposition home or self-care (01) | DRG 232 ==
LOC: N.TELEN 19:56 → SUATTDRO 19:56 → N.CVR 09-14 07:16 → N.TELES 09-15 10:56
PROVIDERS: ADMIT Internal Medicine; ATTEND Internal Medicine Cardiovascular Disease